=== PATIENT | female | born 1980 | race Caucasian/White ===

== ENCOUNTER 2020-08-20 16:38 | Emergency (ER) | payer OTHER ==
[~2020-08-20] VITALS: Ht 165.1 cm; Wt 93.0 kg
[2020-09-02] MEDS ORDERED: [UNRECOGNIZED DRUG - CODE] PO (12:27)
[2020-09-02] MEDS ORDERED: PANTOPRAZOLE SO40 M2 PO (12:27)
[2020-09-02] MEDS ORDERED: [UNRECOGNIZED DRUG - OTHER] PO (12:28)
== END 2020-08-20 23:43 | disposition home or self-care (01) ==
LOC: ER 16:38
DX: K80.20 Calculus of gallbladder without cholecystitis without obstruction (principal); R11.2 Nausea with vomiting, unspecified; R10.11 Right upper quadrant pain

== ENCOUNTER 2020-09-08 05:28 | Day surgery (SDC) | payer OTHER ==
[~2020-09-08 05:28] MED LIST: PANTOPRAZOLE SO40 M2 PO; [UNRECOGNIZED DRUG - CODE] PO; [UNRECOGNIZED DRUG - OTHER] PO
[2020-09-08] MEDS ORDERED: CIPRO500 MG PO (09:46)
[2020-09-08] MEDS ORDERED: ULTRACET PO (09:48)
[2020-09-08] MEDS ORDERED: PROTONIX40 MG PO (09:48)
== END 2020-09-08 11:00 | disposition home or self-care (01) ==
LOC: CIR.AMB 05:28
PROVIDERS: ATTEND Surgery
DX: K80.10 Calculus of gallbladder with chronic cholecystitis without obstruction (principal); K76.0 Fatty (change of) liver, not elsewhere classified; Z20.822 Contact with and (suspected) exposure to COVID-19